=== PATIENT | male | born 1985 | race Caucasian/White ===

== ENCOUNTER 2023-02-17 12:36 | Emergency (ER) | payer OTHER ==
[2023-02-17] MEDS ORDERED: Lidocaine 1% 10 ML MDV INJECT ONE (12:54)
[2023-02-17] MEDS ORDERED: Diphtheria,Pertussis(Acell),Tetanus Vaccine 0.5 ML Syringe IM ONE (13:18)
[2023-02-17] MEDS ORDERED: Ibuprofen 600 MG Tab PO ONE (13:59)
== END 2023-02-17 14:15 | disposition home or self-care (01) ==
LOC: JD.ED 12:36
DX: S61.412A Laceration without foreign body of left hand, initial encounter (principal); Z72.0 Tobacco use; W45.8XXA Other foreign body or object entering through skin, initial encounter
CPT/HCPCS: 12002; 90471; 90715; 99283; A9270; J3490